=== PATIENT | female | born 1985 | race Caucasian/White ===

== ENCOUNTER 2018-05-09 15:59 | Emergency (ER) | payer BC ==
[~2018-05-09] VITALS: Ht 167.6 cm; Wt 63.5 kg
[2018-05-09] MEDS ORDERED: IV NORMAL SALINE 1000ML BAG 1,000 ML IV ONE (16:30)
[2018-05-09 16:40] LABS: BASO % 0 % (0-3); EOS # 0.1 x10^3/uL (0.0-0.7); EOS % 1 % (0-3); HEMATOCRIT 41.8 % (36.0-47.0); HEMOGLOBIN 14.8 g/dL (12.0-15.5); LYMPH # 0.5 x10^3/uL (1.0-4.8); LYMPH % 7 % (24-48); MEAN CORPUSCULAR HEMOGLOBIN 30 pg (25-35); MEAN CORPUSCULAR HGB CONC 36 g/dL (31-37); MEAN CORPUSCULAR VOLUME 83 fL (79-100); MONO # 0.3 x10^3/uL (0.0-1.1); MONO % 4 % (0-9); NEUT # 6.8 x10^3uL (1.8-7.7); NEUT % 88 % (31-73); PLATELET COUNT 230 x10^3/uL (140-400); RED BLOOD COUNT 5.01 x10^6/uL (3.50-5.40); RED CELL DISTRIBUTION WIDTH 13.2 % (11.5-14.5); WHITE BLOOD COUNT 7.7 x10^3/uL (4.0-11.0)
[2018-05-09 16:41] LABS: BILIRUBIN,URINE NEGATIVE (NEG); CLARITY,URINE CLEAR; COLOR,URINE YELLOW; NITRITE,URINE NEGATIVE (NEG); PH,URINE 8.5; PROTEIN,URINE NEGATIVE (NEG-TRACE); UROBILINOGEN,URINE 0.2 mg/dL (0.2 mg/dL)
[2018-05-09] MEDS ORDERED: CONTRAST GIVEN. MC PRN (16:45)
[2018-05-09] MEDS ORDERED: ONDANSETRON PF 4 MG/2 ML VIAL. IV ONE ×2 (16:45→19:30)
[2018-05-09] MEDS ORDERED: IOHEXOL 300 MG/ML 100ML VIAL. IV ONE (16:45)
[2018-05-09] MEDS ORDERED: MORPHINE SULFATE 4 MG/ML VIAL. IV ONE (16:45)
[2018-05-09 16:53] LABS: BACTERIA,URINE 0 /HPF (0-FEW); RBC,URINE OCC /HPF (0-2); SQUAMOUS EPITHELIAL CELL,UR OCC /LPF
[2018-05-09 16:59] LABS: CALCIUM 9.2 mg/dL (8.5-10.1); CREATININE 0.7 mg/dL (0.6-1.0); GFR 97.6; POTASSIUM 3.4 mmol/L (3.5-5.1)
[2018-05-09 17:04] LABS: ALBUMIN 3.9 g/dL (3.4-5.0); TOTAL BILIRUBIN 0.9 mg/dL (0.2-1.0); TOTAL PROTEIN 7.9 g/dL (6.4-8.2)
[2018-05-09] MEDS ORDERED: IV NORMAL SALINE 500ML BAG 500 ML IV ONE ×2 (17:45→18:00)
--- NOTE | 2018-05-09 17:52 | RAD ---
PQRS Compliance statement: One or more of the following individualized dose reduction techniques were utilized for this examination: 1. Automated exposure control. 2. Adjustment of the mA and/or kV according to patient size. 3. Use of iterative reconstruction technique. Indication:right lower quadrant pain, nausea and vomiting
Omni 300 75ml, no priors TECHNIQUE: CT abdomen and pelvis with IV contrast with multiplanar reformats. COMPARISON: None FINDINGS: Heart is normal in size. No pericardial or pleural effusion. Clear lung bases. Liver, spleen, gallbladder, pancreas, adrenals and kidneys are within normal limits. No free pelvic fluid or ascites. No enlarged retroperitoneal or pelvic adenopathy. No bowel obstruction. Normal appendix. No pneumoperitoneum or pneumatosis intestinalis. Retroverted uterus. Urinary bladder demonstrates no radiopaque stones. No suspicious bony lesion. IMPRESSION: 1. No nephrolithiasis or hydronephrosis. 2. Normal appendix. No bowel obstruction. Electronically signed by: Sotero Sánchez DO (05/09/2018 5:49 PM) [id number]
[2018-05-09 18:41] LABS: % LYMPHS 5 % (24-48); % MONOS 1 % (0-10); % SEGS 94 % (35-66); OVALOCYTES OCC; PLT ESTIMATE ADEQUATE (ADEQUATE); POLYCHROMASIA SLIGHT
[2018-05-09] MEDS ORDERED: ONDA4TAB12 PO (18:56)
--- NOTE | 2018-05-09 18:56 | PHYS DOC ---
Past Medical History Past Medical History: No Pertinent History Past Surgical History: Other Additional Past Surgical Histo: LEEP procedure Alcohol Use: Occasionally Drug Use: None Adult General Chief Complaint Chief Complaint: ABDOMINAL PAIN HPI HPI Patient is a 32 year old female who presents to the emergency room with complaints of nausea, vomiting, and right lower quadrant abdominal pain that began today. Patient states she has been unable to keep anything down and she has vomited at least 7 times today. She denies any diarrhea, dysuria, urinary frequency, hematuria, fever, cough, shortness of breath, or wheezing. Patient states that the pain radiates from her right lower quadrant across her lower abdomen into her left flank. She states that the only time she had pain similar to this was in the past when she had a ruptured ovarian cyst. Any vaginal bleeding, regular vaginal discharge, or vaginal itching. She reports her pain is a 10 out of 10 on the pain scale, and she has not taken anything for relief of her discomfort prior to arrival. Review of Systems Review of Systems Constitutional: Denies fever or chills [] HENT: Denies nasal congestion or sore throat [] Respiratory: Denies cough or shortness of breath [] Cardiovascular: No additional information not addressed in HPI [] GI: See HPI : Denies dysuria or hematuria, see HPI [] Musculoskeletal: Denies joint pain, reports L low back/flank pain Integument: Denies rash or skin lesions [] Neurologic: Denies headache, focal weakness or sensory changes [] Complete systems were reviewed and found to be within normal limits, except as documented in this note. Current Medications Current Medications Current Medications Medications (Trade) Dose Ordered Sig/Adiel Start Time Stop Time Status Last Admin Dose Admin Info (CONTRAST GIVEN -- Rx MONITORING) 1 each PRN DAILY PRN 05/09/18 16:45 05/09/18 20:08 DC Iohexol (Omnipaque 300 Mg/ml) 75 ml 1X ONCE 05/09/18 16:45 05/09/18 16:46 DC 05/09/18 17:08 75 ML Morphine Sulfate (Morphine Sulfate) 4 mg 1X ONCE 05/09/18 16:45 05/09/18 16:46 DC 05/09/18 16:40 4 MG Ondansetron HCl (Zofran) 4 mg 1X ONCE 05/09/18 19:30 1/4/19 19:31 DC 05/09/18 20:01 4 MG Potassium Chloride (Klor-Con) 20 meq 1X ONCE 05/09/18 19:00 05/09/18 19:01 DC 05/09/18 19:16 20 MEQ Sodium Chloride 500 ml @ 500 mls/hr 1X ONCE 05/09/18 18:00 05/09/18 18:34 DC Allergies Allergies Allergies Coded Allergies Type Severity Reaction Last Updated Verified Sulfa (Sulfonamide Antibiotics) Allergy Intermediate 05/09/18 Yes Physical Exam Physical Exam Constitutional: Well developed, well nourished, no acute distress, ill appearance. [] HENT: Normocephalic, atraumatic, bilateral external ears normal, oropharynx moist, no oral exudates, nose normal. [] Eyes: PERRLA, conjunctiva normal, no discharge. [] Neck: Normal range of motion, no tenderness, supple, no stridor. [] Cardiovascular:Heart rate regular rhythm, no murmur [] Lungs & Thorax: Bilateral breath sounds clear to auscultation [] Abdomen: Bowel sounds normal, soft, RLQ tenderness, no masses, no pulsatile masses; mcBurney's point tenderness, positive psoas sign, negative obturator sign [] Skin: Warm, dry, no erythema, no rash. [] Back: No CVA tenderness. [] Extremities: No cyanosis, no edema. [] Neurologic: Alert and oriented X 3, normal motor function, normal sensory function, no focal deficits noted. [] Psychologic: Affect normal, judgement normal, mood normal. [] Current Patient Data Vital Signs Vital Signs Date Time Temp Pulse Resp B/P (MAP) Pulse Ox O2 Delivery O2 Flow Rate FiO2 05/09/18 19:41 112 20 101/58 (72) 100 05/09/18 18:41 Room Air 05/09/18 16:10 98.4 98.4 Lab Values Laboratory Tests Test 05/09/18 16:25 05/09/18 16:31 White Blood Count 7.7 x10^3/uL (4.0-11.0) Red Blood Count 5.01 x10^6/uL (3.50-5.40) Hemoglobin 14.8 g/dL (12.0-15.5) Hematocrit 41.8 % (36.0-47.0) Mean Corpuscular Volume 83 fL (79-100) Mean Corpuscular Hemoglobin 30 pg (25-35) Mean Corpuscular Hemoglobin Concent 36 g/dL (31-37) Red Cell Distribution Width 13.2 % (11.5-14.5) Platelet Count 230 x10^3/uL (140-400) Neutrophils (%) (Auto) 88 % (31-73) H Lymphocytes (%) (Auto) 7 % (24-48) L Monocytes (%) (Auto) 4 % (0-9) Eosinophils (%) (Auto) 1 % (0-3) Basophils (%) (Auto) 0 % (0-3) Neutrophils # (Auto) 6.8 x10^3uL (1.8-7.7) Lymphocytes # (Auto) 0.5 x10^3/uL (1.0-4.8) L Monocytes # (Auto) 0.3 x10^3/uL (0.0-1.1) Eosinophils # (Auto) 0.1 x10^3/uL (0.0-0.7) Basophils # (Auto) 0.0 x10^3/uL (0.0-0.2) Segmented Neutrophils % 94 % (35-66) H Lymphocytes % 5 % (24-48) L Monocytes % 1 % (0-10) Platelet Estimate Adequate (ADEQUATE) Polychromasia Slight Ovalocytes Occ Urine Color Yellow Urine Clarity Clear Urine pH 8.5 Urine Specific [place] 1.025 Urine Protein Negative mg/dL (NEG-TRACE) Urine Glucose (UA) Negative mg/dL (NEG) Urine Ketones (Stick) Negative mg/dL (NEG) Urine Blood Negative (NEG) Urine Nitrite Negative (NEG) Urine Bilirubin Negative (NEG) Urine Urobilinogen Dipstick 0.2 mg/dL (0.2 mg/dL) Urine Leukocyte Esterase Negative (NEG) Urine RBC Occ /HPF (0-2) Urine WBC 1-4 /HPF (0-4) Urine Squamous Epithelial Cells Occ /LPF Urine Bacteria 0 /HPF (0-FEW) Urine Mucus Mod /LPF Sodium Level 141 mmol/L (136-145) Potassium Level 3.4 mmol/L (3.5-5.1) L Chloride Level 104 mmol/L (98-107) Carbon Dioxide Level 26 mmol/L (21-32) Anion Gap 11 (6-14) Blood Urea Nitrogen 14 mg/dL (7-20) Creatinine 0.7 mg/dL (0.6-1.0) Estimated GFR (Cockcroft-Gault) 97.6 BUN/Creatinine Ratio 20 (6-20) Glucose Level 108 mg/dL (70-99) H Calcium Level 9.2 mg/dL (8.5-10.1) Total Bilirubin 0.9 mg/dL (0.2-1.0) Aspartate Amino Transferase (AST) 24 U/L (15-37) Alanine Aminotransferase (ALT) 39 U/L (14-59) Alkaline Phosphatase 82 U/L (46-116) Total Protein 7.9 g/dL (6.4-8.2) Albumin 3.9 g/dL (3.4-5.0) Albumin/Globulin Ratio 1.0 (1.0-1.7) POC Urine HCG, Qualitative Hcg negative (Negative) Laboratory Tests 05/09/18 16:25 Laboratory Tests 05/09/18 16:25 EKG EKG [] Radiology/Procedures Radiology/Procedures PROCEDURE: CT ABD PELV W/ IV CONTRST ONLY PQRS Compliance statement: One or more of the following individualized dose reduction techniques were utilized for this examination: 1. Automated exposure control. 2. Adjustment of the mA and/or kV according to patient size. 3. Use of iterative reconstruction technique. Indication:right lower quadrant pain, nausea and vomiting
Omni 300 75ml, no priors TECHNIQUE: CT abdomen and pelvis with IV contrast with multiplanar reformats. COMPARISON: None FINDINGS: Heart is normal in size. No pericardial or pleural effusion. Clear lung bases. Liver, spleen, gallbladder, pancreas, adrenals and kidneys are within normal limits. No free pelvic fluid or ascites. No enlarged retroperitoneal or pelvic adenopathy. No bowel obstruction. Normal appendix. No pneumoperitoneum or pneumatosis intestinalis. Retroverted uterus. Urinary bladder demonstrates no radiopaque stones. No suspicious bony lesion. IMPRESSION: 1. No nephrolithiasis or hydronephrosis. 2. Normal appendix. No bowel obstruction.[] Course & Med Decision Making Course & Med Decision Making Pertinent Labs and Imaging studies reviewed. (See chart for details) Dx: nausea, vomiting, abdominal pain DDx: appendicitis, diverticulitis, ovarian cyst, pyelonephritis, nephrolithiasis 1909 Orthostatics were negative after 1500 ml of NS, pt remains tachycardic and reported nausea increasing, additonal zofran and 500 NS bolus ordered. Pt reports feeling better. Discharged with rx for zofran, clear fluids x24 hours, return to ER if symptoms worsen Patient verbalized an understanding of home care, medications, follow-up, and return to ED instructions and was in agreement with the plan of care. [] Dragon Disclaimer Dragon Disclaimer This electronic medical record was generated, in whole or in part, using a voice recognition dictation system. Departure Departure Impression: Primary Impression: Nausea & vomiting Additional Impressions: Abdominal pain, right lower quadrant Hypokalemia Disposition: HOME, SELF-CARE Condition: STABLE Referrals: NO PCP (PCP) Patient Instructions: Viral Gastroenteritis, [id number] Additional Instructions: Fill prescriptions and use them as directed. Recommend clear fluids for the next 24 hours. Then you may advance to bland foods such as bananas, rice, applesauce, and dry toast. Follow-up with your primary care doctor in the next 1 -2 days. Return to the emergency room if your symptoms worsen. Scripts Ondansetron (ONDANSETRON ODT) 4 Mg Tab.rapdis 1 TAB PO PRN Q6-8HRS PRN for NAUSEA/VOMITING, #16 TAB 0 Refills Prov: LYNN RAMSEY AUXILIARY OPERATOR 05/09/18 Problem Qualifiers Primary Impression: Nausea & vomiting Vomiting type: unspecified Vomiting Intractability: non-intractable Qualified Codes: R11.2 - Nausea with vomiting, unspecified LYNN RAMSEY AUXILIARY OPERATOR May 09, 2018 18:56
[2018-05-09] MEDS ORDERED: POTASSIUM CHLORIDE 20 MEQ TABLET.ER. PO ONE (19:00)
[2018-05-09 19:41] VITALS: BP 101/58
== END 2018-05-09 20:07 | disposition home or self-care (01) ==
LOC: ER 15:59
DX: R10.31 Right lower quadrant pain (principal); R11.2 Nausea with vomiting, unspecified; E87.6 Hypokalemia; M54.5 Low back pain; Z88.2 Allergy status to sulfonamides
CPT/HCPCS: 36415; 74177; 80053; 81001; 81025; 85007; 85025; 96361; 96374; 96375; 96376; 99284; J2270; J2405; J7030; J7040; Q9967

== ENCOUNTER 2018-08-09 15:14 | Inpatient (IN) | payer BC ==
[~2018-08-09] VITALS: Ht 170.2 cm; Wt 56.5 kg
[~2018-08-09 15:14] MED LIST: ONDA4TAB12 PO
--- NOTE | 2018-08-09 15:58 | PHYS DOC ---
Past Medical History Past Medical History: No Pertinent History (LEE ANN HARTLEY APRN) Past Surgical History: Other Additional Past Surgical Histo: LEEP procedure (LEE ANN HARTLEY APRN) Alcohol Use: Occasionally Drug Use: None (LEE ANN HARTLEY APRN) Adult General Chief Complaint Chief Complaint: FLANK PAIN HPI HPI Patient is a 33 year old female with no significant medical history who presents to the ED today complaining of right flank pain. Patient states she was seen earlier today at [facility] urgent [facility], she states she was diagnosed with UTI and sent home with Macrobid. She states she developed increased pain to her right flank region this afternoon. She states she started vomiting after taking the Macrobid. Patient states her flank pain wraps around the abdomen. Denies any fever. (LEE ANN HARTLEY APRN) Review of Systems Review of Systems Constitutional: Denies fever or chills [] Eyes: Denies change in visual acuity, redness, or eye pain [] HENT: Denies nasal congestion or sore throat [] Respiratory: Denies cough or shortness of breath [] Cardiovascular: No additional information not addressed in HPI [] GI: Reports nausea and vomiting,abdominal pain, denies bloody stools or diarrhea [] : Reports right flank pain, currently on UTI treatment. Denies dysuria or hematuria [] Musculoskeletal: Denies back pain or joint pain [] Integument: Denies rash or skin lesions [] Neurologic: Denies headache, focal weakness or sensory changes [] All other systems were reviewed and found to be within normal limits, except as documented in this note. (LEE ANN HARTLEY APRN) Current Medications Current Medications Current Medications Medications (Trade) Dose Ordered Sig/Adiel Start Time Stop Time Status Last Admin Dose Admin Ceftriaxone Sodium (Rocephin) 1 gm 1X ONCE 08/09/18 17:00 08/09/18 17:01 DC 08/09/18 17:41 1 GM Metoclopramide HCl (Reglan Vial) 10 mg 1X ONCE 08/09/18 18:45 08/09/18 18:46 DC Morphine Sulfate (Morphine Sulfate) 4 mg 1X ONCE 08/09/18 18:15 08/09/18 18:16 DC 08/09/18 18:41 2 MG Ondansetron HCl (Zofran) 4 mg 1X ONCE 08/09/18 16:15 08/09/18 16:16 DC 08/09/18 16:04 4 MG Potassium Chloride/Sodium Chloride 1,000 ml @ 75 mls/hr 1X ONCE 08/09/18 18:45 08/10/18 08:04 DC 08/09/18 18:59 75 MLS/HR Potassium Chloride (Klor-Con) 40 meq 1X ONCE 08/09/18 17:00 08/09/18 17:01 Cancel Prochlorperazine Edisylate (Compazine) 10 mg STK-MED ONCE 08/09/18 17:33 08/09/18 17:34 DC Sodium Chloride 1,000 ml @ 1,000 mls/hr 1X ONCE 08/09/18 16:00 08/09/18 16:59 DC 08/09/18 16:03 1,000 MLS/HR (ERROL CONLEY DO) Allergies Allergies Allergies Coded Allergies Type Severity Reaction Last Updated Verified Sulfa (Sulfonamide Antibiotics) Allergy Intermediate 05/09/18 Yes (ERROL CONLEY DO) Physical Exam Physical Exam Constitutional: Well developed, well nourished, no acute distress, non-toxic appearance. [] HENT: Normocephalic, atraumatic, bilateral external ears normal, oropharynx moist, no oral exudates, nose normal. [] Eyes: PERRLA, EOMI, conjunctiva normal, no discharge. [] Neck: Normal range of motion, no tenderness, supple, no stridor. [] Cardiovascular:Heart rate regular rhythm, no murmur [] Lungs & Thorax: Bilateral breath sounds clear to auscultation [] Abdomen: Bowel sounds normal, soft, no right upper quadrant or right lower quadrant tenderness, negative psoas sign, negative obturator sign, no masses, no pulsatile masses. [] Skin: Warm, dry, no erythema, no rash. [] Back: No tenderness, no CVA tenderness. [] Extremities: No tenderness, no cyanosis, no clubbing, ROM intact, no edema. [] Neurologic: Alert and oriented X 3, normal motor function, normal sensory function, no focal deficits noted. [] Psychologic: Affect normal, judgement normal, mood normal. [] (LEE ANN HARTLEY APRN) Current Patient Data Vital Signs Vital Signs Date Time Temp Pulse Resp B/P (MAP) Pulse Ox O2 Delivery O2 Flow Rate FiO2 08/09/18 18:54 115 16 101/60 (74) 100 08/09/18 18:41 Room Air 08/09/18 15:14 98.1 98.1 (ERROL CONLEY DO) Lab Values Laboratory Tests Test 08/09/18 15:38 08/09/18 15:52 08/09/18 16:00 Urine Collection Type Void Urine Color [place] Urine Clarity Clear Urine pH 8.5 Urine Specific [place] 1.015 Urine Protein Negative mg/dL (NEG-TRACE) Urine Glucose (UA) Negative mg/dL (NEG) Urine Ketones (Stick) Trace mg/dL (NEG) Urine Blood Negative (NEG) Urine Nitrite Positive (NEG) Urine Bilirubin Negative (NEG) Urine Urobilinogen Dipstick 1.0 mg/dL (0.2 mg/dL) Urine Leukocyte Esterase Moderate (NEG) Urine RBC 0 /HPF (0-2) Urine WBC 11-20 /HPF (0-4) Urine Squamous Epithelial Cells Few /LPF Urine Bacteria Few /HPF (0-FEW) Urine Mucus Mod /LPF Urine Opiates Screen Neg (NEG) Urine Methadone Screen Neg (NEG) Urine Barbiturates Neg (NEG) Urine Phencyclidine Screen Neg (NEG) Urine Amphetamine/Methamphetamine Neg (NEG) Urine Benzodiazepines Screen Neg (NEG) Urine Cocaine Screen Neg (NEG) Urine Cannabinoids Screen Neg (NEG) Urine Ethyl Alcohol Neg (NEG) POC Urine HCG, Qualitative Hcg positive (Negative) White Blood Count 13.5 x10^3/uL (4.0-11.0) H Red Blood Count 5.14 x10^6/uL (3.50-5.40) Hemoglobin 14.8 g/dL (12.0-15.5) Hematocrit 43.5 % (36.0-47.0) Mean Corpuscular Volume 85 fL (79-100) Mean Corpuscular Hemoglobin 29 pg (25-35) Mean Corpuscular Hemoglobin Concent 34 g/dL (31-37) Red Cell Distribution Width 13.1 % (11.5-14.5) Platelet Count 258 x10^3/uL (140-400) Neutrophils (%) (Auto) 91 % (31-73) H Lymphocytes (%) (Auto) 5 % (24-48) L Monocytes (%) (Auto) 3 % (0-9) Eosinophils (%) (Auto) 1 % (0-3) Basophils (%) (Auto) 0 % (0-3) Neutrophils # (Auto) 12.3 x10^3uL (1.8-7.7) H Lymphocytes # (Auto) 0.6 x10^3/uL (1.0-4.8) L Monocytes # (Auto) 0.4 x10^3/uL (0.0-1.1) Eosinophils # (Auto) 0.1 x10^3/uL (0.0-0.7) Basophils # (Auto) 0.0 x10^3/uL (0.0-0.2) Segmented Neutrophils % 84 % (35-66) H Band Neutrophils % 11 % (0-9) H Lymphocytes % 3 % (24-48) L Monocytes % 2 % (0-10) Platelet Estimate Adequate (ADEQUATE) Maternal Serum HCG Beta Subunit 10 mIU/mL (0-5) H Sodium Level 144 mmol/L (136-145) Potassium Level 3.1 mmol/L (3.5-5.1) L Chloride Level 105 mmol/L (98-107) Carbon Dioxide Level 27 mmol/L (21-32) Anion Gap 12 (6-14) Blood Urea Nitrogen 9 mg/dL (7-20) Creatinine 0.8 mg/dL (0.6-1.0) Estimated GFR (Cockcroft-Gault) 83.1 BUN/Creatinine Ratio 11 (6-20) Glucose Level 102 mg/dL (70-99) H Calcium Level 9.2 mg/dL (8.5-10.1) Total Bilirubin 0.6 mg/dL (0.2-1.0) Aspartate Amino Transferase (AST) 15 U/L (15-37) Alanine Aminotransferase (ALT) 19 U/L (14-59) Alkaline Phosphatase 65 U/L (46-116) Total Protein 7.9 g/dL (6.4-8.2) Albumin 4.4 g/dL (3.4-5.0) Albumin/Globulin Ratio 1.3 (1.0-1.7) Lipase 141 U/L (73-393) Ethyl Alcohol Level < 10 mg/dL (0-10) Laboratory Tests 08/09/18 16:00 Laboratory Tests 08/09/18 16:00 Microbiology 08/09/18 Urine Culture - Final, Complete 08/09/18 Urine Culture Result 1 (RAMESH) - Final, Complete (ERROL CONLEY DO) Lab Values Laboratory Tests Test 08/09/18 15:38 08/09/18 15:52 08/09/18 16:00 Urine Collection Type Void Urine Color [place] Urine Clarity Clear Urine pH 8.5 Urine Specific [place] 1.015 Urine Protein Negative mg/dL (NEG-TRACE) Urine Glucose (UA) Negative mg/dL (NEG) Urine Ketones (Stick) Trace mg/dL (NEG) Urine Blood Negative (NEG) Urine Nitrite Positive (NEG) Urine Bilirubin Negative (NEG) Urine Urobilinogen Dipstick 1.0 mg/dL (0.2 mg/dL) Urine Leukocyte Esterase Moderate (NEG) Urine RBC 0 /HPF (0-2) Urine WBC 11-20 /HPF (0-4) Urine Squamous Epithelial Cells Few /LPF Urine Bacteria Few /HPF (0-FEW) Urine Mucus Mod /LPF Urine Opiates Screen Neg (NEG) Urine Methadone Screen Neg (NEG) Urine Barbiturates Neg (NEG) Urine Phencyclidine Screen Neg (NEG) Urine Amphetamine/Methamphetamine Neg (NEG) Urine Benzodiazepines Screen Neg (NEG) Urine Cocaine Screen Neg (NEG) Urine Cannabinoids Screen Neg (NEG) Urine Ethyl Alcohol Neg (NEG) POC Urine HCG, Qualitative Hcg positive (Negative) White Blood Count 13.5 x10^3/uL (4.0-11.0) H Red Blood Count 5.14 x10^6/uL (3.50-5.40) Hemoglobin 14.8 g/dL (12.0-15.5) Hematocrit 43.5 % (36.0-47.0) Mean Corpuscular Volume 85 fL (79-100) Mean Corpuscular Hemoglobin 29 pg (25-35) Mean Corpuscular Hemoglobin Concent 34 g/dL (31-37) Red Cell Distribution Width 13.1 % (11.5-14.5) Platelet Count 258 x10^3/uL (140-400) Neutrophils (%) (Auto) 91 % (31-73) H Lymphocytes (%) (Auto) 5 % (24-48) L Monocytes (%) (Auto) 3 % (0-9) Eosinophils (%) (Auto) 1 % (0-3) Basophils (%) (Auto) 0 % (0-3) Neutrophils # (Auto) 12.3 x10^3uL (1.8-7.7) H Lymphocytes # (Auto) 0.6 x10^3/uL (1.0-4.8) L Monocytes # (Auto) 0.4 x10^3/uL (0.0-1.1) Eosinophils # (Auto) 0.1 x10^3/uL (0.0-0.7) Basophils # (Auto) 0.0 x10^3/uL (0.0-0.2) Segmented Neutrophils % 84 % (35-66) H Band Neutrophils % 11 % (0-9) H Lymphocytes % 3 % (24-48) L Monocytes % 2 % (0-10) Platelet Estimate Adequate (ADEQUATE) Maternal Serum HCG Beta Subunit 10 mIU/mL (0-5) H Sodium Level 144 mmol/L (136-145) Potassium Level 3.1 mmol/L (3.5-5.1) L Chloride Level 105 mmol/L (98-107) Carbon Dioxide Level 27 mmol/L (21-32) Anion Gap 12 (6-14) Blood Urea Nitrogen 9 mg/dL (7-20) Creatinine 0.8 mg/dL (0.6-1.0) Estimated GFR (Cockcroft-Gault) 83.1 BUN/Creatinine Ratio 11 (6-20) Glucose Level 102 mg/dL (70-99) H Calcium Level 9.2 mg/dL (8.5-10.1) Total Bilirubin 0.6 mg/dL (0.2-1.0) Aspartate Amino Transferase (AST) 15 U/L (15-37) Alanine Aminotransferase (ALT) 19 U/L (14-59) Alkaline Phosphatase 65 U/L (46-116) Total Protein 7.9 g/dL (6.4-8.2) Albumin 4.4 g/dL (3.4-5.0) Albumin/Globulin Ratio 1.3 (1.0-1.7) Lipase 141 U/L (73-393) Ethyl Alcohol Level < 10 mg/dL (0-10) Laboratory Tests 08/09/18 16:00 Laboratory Tests 08/09/18 16:00 (LEE ANN HARTLEY RECORD KEEPER) EKG EKG [] (LEE ANN HARTLEY APRN) Radiology/Procedures Radiology/Procedures [] (LEE ANN HARTLEY APRN) Radiology/Procedures PROCEDURE: OB <14 WKS W/TV History: Nausea, vomiting, abdominal pain, patient has a beta-hCG level of 10, although she takes hCG shots for weight loss. Transabdominal and transvaginal ultrasound imaging of the pelvis was performed. Comparison: None. LMP: 07/26/2018 G 3 P 2 Findings: The uterus is retroverted in position and otherwise normal in appearance. The uterus measures 8.2 x 5.5 x 3.9 cm. No pole or gestational sac identified. The endometrium measures 0.7 cm in thickness. Small nabothian cysts seen. The right ovary measures 2.1 x 2.4 x 1.3 cm. The left ovary measures 3.9 x 3.4 x 1.9 cm. The ovaries are normal in appearance, with follicles seen bilaterally. No adnexal mass or free fluid identified. Impression: 1. No pole or gestational sac identified. It is possible that this is due to early gestational age, although patient's beta-hCG elevation may be due to aforementioned hCG injections. Recommend serial beta-hCG levels and follow-up sonography as indicated. 2. Multiple small bilateral ovarian cysts. Normal bilateral ovarian vascular flow. Electronically signed by: Bear Ramos MD (08/09/2018 8:51 PM) [facility] (ERROL CONLEY DO) Course & Med Decision Making Course & Med Decision Making Pertinent Labs and Imaging studies reviewed. (See chart for details) This is a 33-year-old female patient presenting to the ED today with complaints of right flank pain, nausea vomiting, patient was seen earlier at an urgent care , was diagnosed with UTI and started on Macrobid. She took a dose of the medication and started vomiting. She is also in experiencing increased pain to the right flank region this afternoon. Urine test is positive, patient states she doesn't believe the results because she takes hCG injections but she does not uses natural methods of control. We did a beta hCG which is 10. CBC with a WBC of 13.5 and a left shift, CMP with no acute findings, urine analysis noted for nitrites and leukocytes. Beta hCG of 10 is too early to show if there is an IUP patient also states her last cycle was last week she believes this elevated beta hcg is from hcg shots though she does not use any reliable control method. Potassium 3.1 Patient will be discharged with cephalexin, zofran and Compazine for nausea and vomiting. Offered her choice to stay. She states she does not necessarily want to stay. 1820 patient is vomiting right now. Spoke to patient. Informed her there is no way she can go home in this condition. She agreed to stay. I consulted with Dr. Armstrong concerning patient's elevated beta hCG, he states patient is not , this is likely from hCG shots. Patient will be admitted under Dr. Díaz. We will order a repeat beta hCG for AM. Still waiting for OB ultrasound. Admitted with normal saline with potassium. Patient unable to tolerate potassium by mouth (LEE ANN HARTLEY APRN) Dragon Disclaimer Dragon Disclaimer This electronic medical record was generated, in whole or in part, using a voice recognition dictation system. (LEE ANN HARTLEY APRN) Departure Departure Impression: Primary Impression: Hypokalemia Additional Impressions: Pyelonephritis Elevated serum hCG Disposition: ADMITTED INPATIENT Condition: STABLE Referrals: NO PCP (PCP) Scripts Ciprofloxacin Hcl (CIPRO) 500 Mg Tablet 1 TAB PO BID for uti, #20 TAB Prov: JAC ELIAS MD 08/11/18 Attending Signature Attending Signature I have reviewed the PA/LOSS PREVENTION AUDITOR's note and plan of care. I was available for consultation as needed during the patient's visit in the emergency department. I agree with the clinical impression, plan, and disposition. (ERROL CONLEY DO) Problem Qualifiers LEE ANN HARTLEY APRN Aug 09, 2018 15:58 ERROL CONLEY DO Aug 15, 2018 00:39
[2018-08-09 16:00] LABS: BILIRUBIN,URINE NEGATIVE (NEG); CLARITY,URINE CLEAR; COLOR,URINE ORANGE; NITRITE,URINE POSITIVE (NEG); PH,URINE 8.5; PROTEIN,URINE NEGATIVE (NEG-TRACE)
[2018-08-09] MEDS ORDERED: IV NORMAL SALINE 1000ML BAG 1,000 ML IV ONE (16:00)
[2018-08-09 16:12] LABS: BARBITURATES NEG (NEG); BENZODIAZEPINES NEG (NEG); CANNABINOIDS NEG (NEG); COCAINE NEG (NEG); METHADONE NEG (NEG); OPIATES NEG (NEG); PHENCYCLIDINE NEG (NEG)
[2018-08-09 16:13] LABS: AMPHETAMINE/METHAMPHETAMINE NEG (NEG)
[2018-08-09 16:14] LABS: BACTERIA,URINE FEW /HPF (0-FEW); RBC,URINE 0 /HPF (0-2); SQUAMOUS EPITHELIAL CELL,UR FEW /LPF
[2018-08-09] MEDS ORDERED: ONDANSETRON PF 4 MG/2 ML VIAL. IV ONE (16:15)
[2018-08-09 16:19] LABS: BASO % 0 % (0-3); EOS # 0.1 x10^3/uL (0.0-0.7); EOS % 1 % (0-3); HEMATOCRIT 43.5 % (36.0-47.0); HEMOGLOBIN 14.8 g/dL (12.0-15.5); LYMPH # 0.6 x10^3/uL (1.0-4.8); LYMPH % 5 % (24-48); MEAN CORPUSCULAR HEMOGLOBIN 29 pg (25-35); MEAN CORPUSCULAR HGB CONC 34 g/dL (31-37); MEAN CORPUSCULAR VOLUME 85 fL (79-100); MONO # 0.4 x10^3/uL (0.0-1.1); MONO % 3 % (0-9); NEUT # 12.3 x10^3uL (1.8-7.7); NEUT % 91 % (31-73); PLATELET COUNT 258 x10^3/uL (140-400); RED BLOOD COUNT 5.14 x10^6/uL (3.50-5.40); RED CELL DISTRIBUTION WIDTH 13.1 % (11.5-14.5); WHITE BLOOD COUNT 13.5 x10^3/uL (4.0-11.0)
[2018-08-09 16:32] LABS: CALCIUM 9.2 mg/dL (8.5-10.1); CREATININE 0.8 mg/dL (0.6-1.0); GFR 83.1; POTASSIUM 3.1 mmol/L (3.5-5.1)
[2018-08-09 16:37] LABS: ALBUMIN 4.4 g/dL (3.4-5.0); ALBUMIN/GLOBULIN RATIO 1.3 (1.0-1.7); TOTAL BILIRUBIN 0.6 mg/dL (0.2-1.0); TOTAL PROTEIN 7.9 g/dL (6.4-8.2)
[2018-08-09 16:39] LABS: % BANDS 11 % (0-9); % LYMPHS 3 % (24-48); % MONOS 2 % (0-10); % SEGS 84 % (35-66); PLT ESTIMATE ADEQUATE (ADEQUATE)
[2018-08-09] MEDS ORDERED: cefTRIAXone IV Push 1 GM VIAL. IVP ONE (17:00)
[2018-08-09] MEDS ORDERED: POTASSIUM CHLORIDE 20 MEQ TABLET.ER. PO ONE (17:00)
[2018-08-09] MEDS ORDERED: PROCHLORPERAZINE 10 MG/2 ML VIAL. ONE (17:33)
[2018-08-09] MEDS ORDERED: PROCHLORPERAZINE 10 MG/2 ML VIAL. IV ONE (17:45)
[2018-08-09] MEDS ORDERED: MORPHINE SULFATE 4 MG/ML VIAL. IV ONE (18:15)
[2018-08-09] MEDS ORDERED: METOCLOPRAMIDE HCL 10 MG/2 ML VIAL. IV ONE (18:45)
[2018-08-09] MEDS ORDERED: PROCHLORPERAZINE 10 MG/2 ML VIAL. IV PRN (19:00)
[2018-08-09] MEDS ORDERED: ONDANSETRON PF 4 MG/2 ML VIAL. IV PRN (19:00)
[2018-08-09] MEDS ORDERED: MORPHINE SULFATE 2 MG/ML VIAL. IV PRN (19:00)
[2018-08-09] MEDS ORDERED: fentaNYL PF VIAL 100 MCG/2 ML VIAL IV ONE (19:45)
--- NOTE | 2018-08-09 20:54 | RAD ---
History: Nausea, vomiting, abdominal pain, patient has a beta-hCG level of 10, although she takes hCG shots for weight loss. Transabdominal and transvaginal ultrasound imaging of the pelvis was performed. Comparison: None. LMP: 07/26/2018 G 3 P 2 Findings: The uterus is retroverted in position and otherwise normal in appearance. The uterus measures 8.2 x 5.5 x 3.9 cm. No pole or gestational sac identified. The endometrium measures 0.7 cm in thickness. Small nabothian cysts seen. The right ovary measures 2.1 x 2.4 x 1.3 cm. The left ovary measures 3.9 x 3.4 x 1.9 cm. The ovaries are normal in appearance, with follicles seen bilaterally. No adnexal mass or free fluid identified. Impression: 1. No pole or gestational sac identified. It is possible that this is due to early gestational age, although patient's beta-hCG elevation may be due to aforementioned hCG injections. Recommend serial beta-hCG levels and follow-up sonography as indicated. 2. Multiple small bilateral ovarian cysts. Normal bilateral ovarian vascular flow. Electronically signed by: Bear Ramos MD (08/09/2018 8:51 PM) [facility]
[2018-08-09 21:00] VITALS: BP 111/71
[2018-08-09] MEDS ORDERED: DEXT10TA23 PO (21:21)
[2018-08-09 23:29] VITALS: BP 97/45
[2018-08-09] MEDS: ACETAMINOPHEN 325 MG TABLET. PO PRN (23:30)
[2018-08-10] VITALS (7 sets, daily range): BP systolic 86–108; BP diastolic 48–71
--- NOTE | 2018-08-10 00:32 | NUR ---
Pt arrived to the unit at approximately 2029 via gurney from the ED. Pt's mother at bedside. Patient information guide packet was explained and given to pt. At this time, pt is really drowsy from all the medications given down in the ED. Pt unable to answer questions regarding her medical history, home medications, and pharmacy. Pt triggered a positive sepsis. Stat lactic, Blood culture x2, and EKG ordered. Dr. Arjun garcia, awaiting call, and RN spoke to ICU charge operator. Awaiting lab result to come back. Pt made comfortable in bed. Will continue to monitor. Addendum: 08/10/18 at 0433 by CHERYL TORRES RN Lactic came back at 1.6, temperature and heart rate came down. Dr. Díaz had received message through "[employer]" but no phone call back at this time. Pt resting comfortably in bed. Will continue to monitor pt closely.
[2018-08-10 05:03] LABS: BASO % 0 % (0-3); EOS % 1 % (0-3); HEMOGLOBIN 13.2 g/dL (12.0-15.5); LYMPH # 0.6 x10^3/uL (1.0-4.8); LYMPH % 11 % (24-48); MEAN CORPUSCULAR HEMOGLOBIN 29 pg (25-35); MEAN CORPUSCULAR HGB CONC 34 g/dL (31-37); MEAN CORPUSCULAR VOLUME 85 fL (79-100); MONO # 0.2 x10^3/uL (0.0-1.1); MONO % 3 % (0-9); NEUT # 5.2 x10^3uL (1.8-7.7); NEUT % 86 % (31-73); PLATELET COUNT 186 x10^3/uL (140-400); RED BLOOD COUNT 4.58 x10^6/uL (3.50-5.40); RED CELL DISTRIBUTION WIDTH 12.7 % (11.5-14.5); WHITE BLOOD COUNT 6.1 x10^3/uL (4.0-11.0)
[2018-08-10 05:31] LABS: CALCIUM 7.9 mg/dL (8.5-10.1); CREATININE 0.7 mg/dL (0.6-1.0); POTASSIUM 3.3 mmol/L (3.5-5.1)
--- NOTE | 2018-08-10 07:38 | PDOC1 ---
History and Physical Date of Admission Date of Admission DATE: 08/10/18 TIME: 07:37 Identification/Chief Complaint Chief Complaint Flank pain Source Source: Patient History of Present Illness History of Present Illness 33 year old female with no significant medical history who presents to the ED today complaining of right flank pain. Patient states she was seen earlier today at [place] urgent [facility], she states she was diagnosed with UTI and sent home with Macrobid. She states she developed increased pain to her right flank region this afternoon. She states she started vomiting after taking the Macrobid. Patient states her flank pain wraps around the abdomen. Fever 102.3F. Urine test is positive, patient states she doesn't believe the results because she takes hCG injections but she does not uses natural methods of control. Beta hCG which is 10 on blood work. CBC with a WBC of 13.5 and a left shift, CMP with no acute findings, urine analysis noted for nitrites and leukocytes. Patient also states her last menstrual cycle was last week she believes this elevated beta hcg is from hcg shots though she does not use any reliable control method. Past Medical History Cardiovascular: No pertinent hx Pulmonary: No pertinent hx GI: No pertinent hx Heme/Onc: No pertinent hx Hepatobiliary: No pertinent hx Psych: No pertinent hx Rheumatologic: No pertinent hx Infectious disease: No pertinent hx ENT: No pertinent hx Renal/: No pertinent hx Endocrine: No pertinent hx Dermatology: No pertinent hx Past Surgical History Past Surgical History: Other (LEEP, colposcopy) Family History Family History: Hypertension Social History Smoke: No ALCOHOL: none Drugs: None Current Problem List Problem List Problems Medical Problems: (1) Elevated serum hCG Status: Acute (2) Hypokalemia Status: Acute (3) Pyelonephritis Status: Acute Current Medications Current Medications Current Medications Sodium Chloride 1,000 ml @ 1,000 mls/hr 1X ONCE IV Last administered on at 16:03; Start 08/09/18 at 16:00; Stop 08/09/18 at 16:59; Status DC Ondansetron HCl (Zofran) 4 mg 1X ONCE IV Last administered on 08/09/18at 16:04; Start 08/09/18 at 16:15; Stop 08/09/18 at 16:16; Status DC Ceftriaxone Sodium (Rocephin) 1 gm 1X ONCE IVP Last administered on 08/09/18at 17:41; Start 08/09/18 at 17:00; Stop 08/09/18 at 17:01; Status DC Potassium Chloride (Klor-Con) 40 meq 1X ONCE PO ; Start 08/09/18 at 17:00; Stop 08/09/18 at 17:01; Status Cancel Prochlorperazine Edisylate (Compazine) 10 mg 1X ONCE IV Last administered on at 17:37; Start 08/09/18 at 17:45; Stop 08/09/18 at 17:46; Status DC Prochlorperazine Edisylate (Compazine) 10 mg STK-MED ONCE .ROUTE ; Start at 17:33; Stop 08/09/18 at 17:34; Status DC Morphine Sulfate (Morphine Sulfate) 4 mg 1X ONCE IV Last administered on at 18:41; Start 08/09/18 at 18:15; Stop 08/09/18 at 18:16; Status DC Metoclopramide HCl (Reglan Vial) 10 mg 1X ONCE IV ; Start 08/09/18 at 18:45; Stop 08/09/18 at 18:46; Status DC Potassium Chloride/Sodium Chloride 1,000 ml @ 75 mls/hr 1X ONCE IV Last administered on 08/09/18at 18:59; Start 08/09/18 at 18:45; Stop 08/10/18 at 08:04 Ondansetron HCl (Zofran) 4 mg PRN Q8HRS PRN IV NAUSEA/VOMITING; Start 08/09/18 at 19:00; Stop 08/10/18 at 18:59 Morphine Sulfate (Morphine Sulfate) 1 mg PRN Q2HR PRN IV PAIN; Start 08/09/18 at 19:00; Stop 08/10/18 at 18:59 Acetaminophen (Tylenol) 650 mg PRN Q4HRS PRN PO FEVER Last administered on at 23:30; Start 08/09/18 at 19:00; Stop 08/10/18 at 18:59 Prochlorperazine Edisylate (Compazine) 10 mg PRN TID PRN IV NAUSEA; Start at 19:00 Fentanyl Citrate (Fentanyl 2ml Vial) 50 mcg 1X ONCE IV Last administered on 08/09/18at 19:41; Start 08/09/18 at 19:45; Stop 08/09/18 at 19:46; Status DC Active Scripts Active Ondansetron Odt (Ondansetron) 4 Mg Tab.rapdis 1 Tab PO PRN Q6-8HRS PRN Reported Adderall 10 Mg Tablet (Dextroamphetamine/Amphetamine) 10 Mg Tablet 5 Mg PO BID Allergies Allergies: Coded Allergies: Sulfa (Sulfonamide Antibiotics) (Verified Allergy, Intermediate, 05/09/18) ROS General: YES: Chills, Fatigue, Malaise, Appetite; No: Night Sweats, Other PSYCHOLOGICAL ROS: YES: Anxiety; No: Behavioral Disorder, Concentration difficultie, Decreased libido, Depression, Disorientation, Hallucinations, Hostility, Irritablity, Memory difficulties, Mood Swings, Obsessive thoughts, Physical abuse, Sexual abuse, Sleep disturbances, Suicidal ideation, Other Eyes: No Blurry vision, No Decreased vision, No Double vision, No Dry eyes, No Excessive tearing, No Eye Pain, No Itchy Eyes, No Loss of vision, No Photophobia , No Scotomata, No Uses contacts, No Uses glasses, No Other HEENT: No: Heacaches, Visual Changes, Hearing change, Nasal congestion, Nasal discharge, Oral lesions, Sinus pain, Sore Throat, Epistaxis, Sneezing, Snoring, Tinnitus, Vertigo, Vocal changes, Other ALLERGY AND IMMUNOLOGY: No: Hives, Insect Bite Sensitivity, Itchy/Watery Eyes, Nasal Congestion, Post Nasal Drip, Seasonal Allergies, Other Hematological and Lymphatic: No: Bleeding Problems, Blood Clots, Blood Transfusions, Brusing, Night Sweats, Pallor, Swollen Lymph Nodes, Other ENDOCRINE: No: Breast Changes, Galactorrhea, Hair Pattern Changes, Hot Flashes , Malaise/lethargy, Mood Swings, Palpitations, Polydipsia/polyuria, Skin Changes , Temperature Intolerance, Unexpected Weight Changes, Other Breast: No New/Changing Breast Lumps, No Nipple changes, No Nipple discharge, No Other Respiratory: No: Cough, Hemoptysis, Orthopnea, Pleuritic Pain, Shortness of breath, SOB with excertion, Sputum Changes, Stridor, Tachypnea, Wheezing, Other Cardiovascular: No Chest Pain, No Palpitations, No Orthopnea, No Paroxysmal Noc. Dyspnea, No Edema, No Lt Headedness, No Other Gastrointestinal: Yes Nausea, Yes Vomiting, Yes Abdominal Pain; No Diarrhea, No Constipation, No Melena, No Hematochezia, No Other Genitourinary: YES Dysuria, YES Frequency, YES Urgency, YES Pain, YES Flank Pain; No Incontinence, No Hematuria, No Retention, No Discharge, No Other, No , No , No , No , No , No , No Musculoskeletal: No Gait Disturbance, No Joint Pain, No Joint Stiffness, No Joint Swelling, No Muscle Pain, No Muscular Weakness, No Pain In:, No Swelling In:, No Other Neurological: No Behavorial Changes, No Bowel/Bladder ControlChng, No Confusion , No Dizziness, No Gait Disturbance, No Headaches, No Impaired Coord/balance, No Memory Loss, No Numbness/Tingling, No Seizures, No Speech Problems, No Tremors, No Visual Changes, No Weakness, No Other Skin: No Dry Skin, No Eczema, No Hair Changes, No Lumps, No Mole Changes, No Mottling, No Nail Changes, No Pruritus, No Rash, No Skin Lesion Changes, No Other, No Acne Physical Exam General: Alert, Oriented X3, Cooperative, No acute distress HEENT: Atraumatic, PERRLA, EOMI, Mucous membr. moist/pink Lungs: Clear to auscultation, Normal air movement Heart: S1S2, RRR, no gallops, no murmurs Abdomen: Normal bowel sounds, Soft, No hepatosplenomegaly, No masses, Other ( Right CVA tender) Rectal Exam: not examined Extremities: No clubbing, No cyanosis, No edema, Normal pulses, No tenderness/ swelling Skin: No rashes, No breakdown, No significant lesion Neuro: Normal gait, Normal speech, Strength at 5/5 X4 ext, Normal tone, Sensation intact, Cranial nerves 3-12 NL, Reflexes 2+ Psych/Mental Status: Mental status NL, Mood NL Vitals Vitals Vital Signs Date Time Temp Pulse Resp B/P (MAP) Pulse Ox O2 Delivery O2 Flow Rate FiO2 08/10/18 03:00 99.1 103 2 97/71 (80) 97 Room Air 99.1 Labs Labs Laboratory Tests Test 08/09/18 15:38 08/09/18 15:52 08/09/18 16:00 08/10/18 00:15 Urine Collection Type Void Urine Color Solomons Urine Clarity Clear Urine pH 8.5 Urine Specific [place] 1.015 Urine Protein Negative mg/dL (NEG-TRACE) Urine Glucose (UA) Negative mg/dL (NEG) Urine Ketones (Stick) Trace mg/dL (NEG) Urine Blood Negative (NEG) Urine Nitrite Positive (NEG) Urine Bilirubin Negative (NEG) Urine Urobilinogen Dipstick 1.0 mg/dL (0.2 mg/dL) Urine Leukocyte Esterase Moderate (NEG) Urine RBC 0 /HPF (0-2) Urine WBC 11-20 /HPF (0-4) Urine Squamous Epithelial Cells Few /LPF Urine Bacteria Few /HPF (0-FEW) Urine Mucus Mod /LPF Urine Opiates Screen Neg (NEG) Urine Methadone Screen Neg (NEG) Urine Barbiturates Neg (NEG) Urine Phencyclidine Screen Neg (NEG) Urine Amphetamine/Methamphetamine Neg (NEG) Urine Benzodiazepines Screen Neg (NEG) Urine Cocaine Screen Neg (NEG) Urine Cannabinoids Screen Neg (NEG) Urine Ethyl Alcohol Neg (NEG) Bedside Urine HCG, Qualitative Hcg positive (Negative) White Blood Count 13.5 x10^3/uL (4.0-11.0) Red Blood Count 5.14 x10^6/uL (3.50-5.40) Hemoglobin 14.8 g/dL (12.0-15.5) Hematocrit 43.5 % (36.0-47.0) Mean Corpuscular Volume 85 fL (79-100) Mean Corpuscular Hemoglobin 29 pg (25-35) Mean Corpuscular Hemoglobin Concent 34 g/dL (31-37) Red Cell Distribution Width 13.1 % (11.5-14.5) Platelet Count 258 x10^3/uL (140-400) Neutrophils (%) (Auto) 91 % (31-73) Lymphocytes (%) (Auto) 5 % (24-48) Monocytes (%) (Auto) 3 % (0-9) Eosinophils (%) (Auto) 1 % (0-3) Basophils (%) (Auto) 0 % (0-3) Neutrophils # (Auto) 12.3 x10^3uL (1.8-7.7) Lymphocytes # (Auto) 0.6 x10^3/uL (1.0-4.8) Monocytes # (Auto) 0.4 x10^3/uL (0.0-1.1) Eosinophils # (Auto) 0.1 x10^3/uL (0.0-0.7) Basophils # (Auto) 0.0 x10^3/uL (0.0-0.2) Segmented Neutrophils % 84 % (35-66) Band Neutrophils % 11 % (0-9) Lymphocytes % 3 % (24-48) Monocytes % 2 % (0-10) Platelet Estimate Adequate (ADEQUATE) Maternal Serum HCG Beta Subunit 10 mIU/mL (0-5) Sodium Level 144 mmol/L (136-145) Potassium Level 3.1 mmol/L (3.5-5.1) Chloride Level 105 mmol/L (98-107) Carbon Dioxide Level 27 mmol/L (21-32) Anion Gap 12 (6-14) Blood Urea Nitrogen 9 mg/dL (7-20) Creatinine 0.8 mg/dL (0.6-1.0) Estimated GFR (Cockcroft-Gault) 83.1 BUN/Creatinine Ratio 11 (6-20) Glucose Level 102 mg/dL (70-99) Calcium Level 9.2 mg/dL (8.5-10.1) Total Bilirubin 0.6 mg/dL (0.2-1.0) Aspartate Amino Transf (AST/SGOT) 15 U/L (15-37) Alanine Aminotransferase (ALT/SGPT) 19 U/L (14-59) Alkaline Phosphatase 65 U/L (46-116) Total Protein 7.9 g/dL (6.4-8.2) Albumin 4.4 g/dL (3.4-5.0) Albumin/Globulin Ratio 1.3 (1.0-1.7) Lipase 141 U/L (73-393) Ethyl Alcohol Level < 10 mg/dL (0-10) Lactic Acid Level 1.6 mmol/L (0.4-2.0) Test 08/10/18 04:15 White Blood Count 6.1 x10^3/uL (4.0-11.0) Red Blood Count 4.58 x10^6/uL (3.50-5.40) Hemoglobin 13.2 g/dL (12.0-15.5) Hematocrit 39.0 % (36.0-47.0) Mean Corpuscular Volume 85 fL (79-100) Mean Corpuscular Hemoglobin 29 pg (25-35) Mean Corpuscular Hemoglobin Concent 34 g/dL (31-37) Red Cell Distribution Width 12.7 % (11.5-14.5) Platelet Count 186 x10^3/uL (140-400) Neutrophils (%) (Auto) 86 % (31-73) Lymphocytes (%) (Auto) 11 % (24-48) Monocytes (%) (Auto) 3 % (0-9) Eosinophils (%) (Auto) 1 % (0-3) Basophils (%) (Auto) 0 % (0-3) Neutrophils # (Auto) 5.2 x10^3uL (1.8-7.7) Lymphocytes # (Auto) 0.6 x10^3/uL (1.0-4.8) Monocytes # (Auto) 0.2 x10^3/uL (0.0-1.1) Eosinophils # (Auto) 0.0 x10^3/uL (0.0-0.7) Basophils # (Auto) 0.0 x10^3/uL (0.0-0.2) Sodium Level 140 mmol/L (136-145) Potassium Level 3.3 mmol/L (3.5-5.1) Chloride Level 105 mmol/L (98-107) Carbon Dioxide Level 22 mmol/L (21-32) Anion Gap 13 (6-14) Blood Urea Nitrogen 9 mg/dL (7-20) Creatinine 0.7 mg/dL (0.6-1.0) Estimated GFR (Cockcroft-Gault) 97.0 Glucose Level 106 mg/dL (70-99) Calcium Level 7.9 mg/dL (8.5-10.1) Laboratory Tests Test 08/09/18 15:38 08/09/18 15:52 08/09/18 16:00 08/10/18 00:15 Urine Collection Type Void Urine Color Solomons Urine Clarity Clear Urine pH 8.5 Urine Specific [place] 1.015 Urine Protein Negative mg/dL (NEG-TRACE) Urine Glucose (UA) Negative mg/dL (NEG) Urine Ketones (Stick) Trace mg/dL (NEG) Urine Blood Negative (NEG) Urine Nitrite Positive (NEG) Urine Bilirubin Negative (NEG) Urine Urobilinogen Dipstick 1.0 mg/dL (0.2 mg/dL) Urine Leukocyte Esterase Moderate (NEG) Urine RBC 0 /HPF (0-2) Urine WBC 11-20 /HPF (0-4) Urine Squamous Epithelial Cells Few /LPF Urine Bacteria Few /HPF (0-FEW) Urine Mucus Mod /LPF Urine Opiates Screen Neg (NEG) Urine Methadone Screen Neg (NEG) Urine Barbiturates Neg (NEG) Urine Phencyclidine Screen Neg (NEG) Urine Amphetamine/Methamphetamine Neg (NEG) Urine Benzodiazepines Screen Neg (NEG) Urine Cocaine Screen Neg (NEG) Urine Cannabinoids Screen Neg (NEG) Urine Ethyl Alcohol Neg (NEG) Bedside Urine HCG, Qualitative Hcg positive (Negative) White Blood Count 13.5 x10^3/uL (4.0-11.0) Red Blood Count 5.14 x10^6/uL (3.50-5.40) Hemoglobin 14.8 g/dL (12.0-15.5) Hematocrit 43.5 % (36.0-47.0) Mean Corpuscular Volume 85 fL (79-100) Mean Corpuscular Hemoglobin 29 pg (25-35) Mean Corpuscular Hemoglobin Concent 34 g/dL (31-37) Red Cell Distribution Width 13.1 % (11.5-14.5) Platelet Count 258 x10^3/uL (140-400) Neutrophils (%) (Auto) 91 % (31-73) Lymphocytes (%) (Auto) 5 % (24-48) Monocytes (%) (Auto) 3 % (0-9) Eosinophils (%) (Auto) 1 % (0-3) Basophils (%) (Auto) 0 % (0-3) Neutrophils # (Auto) 12.3 x10^3uL (1.8-7.7) Lymphocytes # (Auto) 0.6 x10^3/uL (1.0-4.8) Monocytes # (Auto) 0.4 x10^3/uL (0.0-1.1) Eosinophils # (Auto) 0.1 x10^3/uL (0.0-0.7) Basophils # (Auto) 0.0 x10^3/uL (0.0-0.2) Segmented Neutrophils % 84 % (35-66) Band Neutrophils % 11 % (0-9) Lymphocytes % 3 % (24-48) Monocytes % 2 % (0-10) Platelet Estimate Adequate (ADEQUATE) Maternal Serum HCG Beta Subunit 10 mIU/mL (0-5) Sodium Level 144 mmol/L (136-145) Potassium Level 3.1 mmol/L (3.5-5.1) Chloride Level 105 mmol/L (98-107) Carbon Dioxide Level 27 mmol/L (21-32) Anion Gap 12 (6-14) Blood Urea Nitrogen 9 mg/dL (7-20) Creatinine 0.8 mg/dL (0.6-1.0) Estimated GFR (Cockcroft-Gault) 83.1 BUN/Creatinine Ratio 11 (6-20) Glucose Level 102 mg/dL (70-99) Calcium Level 9.2 mg/dL (8.5-10.1) Total Bilirubin 0.6 mg/dL (0.2-1.0) Aspartate Amino Transf (AST/SGOT) 15 U/L (15-37) Alanine Aminotransferase (ALT/SGPT) 19 U/L (14-59) Alkaline Phosphatase 65 U/L (46-116) Total Protein 7.9 g/dL (6.4-8.2) Albumin 4.4 g/dL (3.4-5.0) Albumin/Globulin Ratio 1.3 (1.0-1.7) Lipase 141 U/L (73-393) Ethyl Alcohol Level < 10 mg/dL (0-10) Lactic Acid Level 1.6 mmol/L (0.4-2.0) Test 08/10/18 04:15 White Blood Count 6.1 x10^3/uL (4.0-11.0) Red Blood Count 4.58 x10^6/uL (3.50-5.40) Hemoglobin 13.2 g/dL (12.0-15.5) Hematocrit 39.0 % (36.0-47.0) Mean Corpuscular Volume 85 fL (79-100) Mean Corpuscular Hemoglobin 29 pg (25-35) Mean Corpuscular Hemoglobin Concent 34 g/dL (31-37) Red Cell Distribution Width 12.7 % (11.5-14.5) Platelet Count 186 x10^3/uL (140-400) Neutrophils (%) (Auto) 86 % (31-73) Lymphocytes (%) (Auto) 11 % (24-48) Monocytes (%) (Auto) 3 % (0-9) Eosinophils (%) (Auto) 1 % (0-3) Basophils (%) (Auto) 0 % (0-3) Neutrophils # (Auto) 5.2 x10^3uL (1.8-7.7) Lymphocytes # (Auto) 0.6 x10^3/uL (1.0-4.8) Monocytes # (Auto) 0.2 x10^3/uL (0.0-1.1) Eosinophils # (Auto) 0.0 x10^3/uL (0.0-0.7) Basophils # (Auto) 0.0 x10^3/uL (0.0-0.2) Sodium Level 140 mmol/L (136-145) Potassium Level 3.3 mmol/L (3.5-5.1) Chloride Level 105 mmol/L (98-107) Carbon Dioxide Level 22 mmol/L (21-32) Anion Gap 13 (6-14) Blood Urea Nitrogen 9 mg/dL (7-20) Creatinine 0.7 mg/dL (0.6-1.0) Estimated GFR (Cockcroft-Gault) 97.0 Glucose Level 106 mg/dL (70-99) Calcium Level 7.9 mg/dL (8.5-10.1) Images Images TVUS - 1. No pole or gestational sac identified. It is possible that this is due to early gestational age, although patient's beta-hCG elevation may be due to aforementioned hCG injections. Recommend serial beta-hCG levels and follow-up sonography as indicated. 2. Multiple small bilateral ovarian cysts. Normal bilateral ovarian vascular flow. VTE Prophylaxis Ordered VTE Prophylaxis Devices: Yes VTE Pharmacological Prophylaxi: No Assessment/Plan Assessment/Plan A/P: Right flank pain - symptomatically pyelonephritis with positive UA. Cont rocephin Sepsis - likely 2/2 pyelonephritis, IVF, antibiotics, tylenol prn Positive bHCG - will consult Job Press Operator, serial HCG to r/o . She takes exogenous HCG Hypokalemia - will replace orally, check mag level FEN - Clear liquid diet PPX - SCDs FULL CODE Inpatient for pyelonephritis with sepsis for at least 2 midnights JEANNE OLGUIN MD Aug 10, 2018 07:38
[2018-08-10] MEDS: ACETAMINOPHEN 325 MG TABLET. PO PRN (08:14)
[2018-08-10] MEDS ORDERED: ONDANSETRON ODT 4 MG TAB.RAPDIS. PO PRN (08:45)
[2018-08-10] MEDS ORDERED: POTASSIUM CHLORIDE 20 MEQ TABLET.ER. PO ONE (09:00)
[2018-08-10] MEDS: cefTRIAXone IV Push 1 GM VIAL. IVP SCH (09:55)
[2018-08-10] MEDS ORDERED: IV RINGERS,LACTATED 1000ML 1,000 ML IV ONE (10:00)
--- NOTE | 2018-08-10 17:10 | EKG ---
[facility] [address] [place] [address] Test Date: 2018-08-10 Test Time: 00:02:10 Pat Name: PEEWEE EDUARDO Department: Room: [facility] Gender: F Tooling Engineer: GRANT : 1985 Requested By: DARRIN TIWARI Order Number: [id number] Reading MD: Travis Aleman MD Measurements Intervals [place] Rate: 115 P: 39 [place]: 122 QRS: 53 QRSD: 78 T: 63 QT: 312 QTc: 433 Interpretive Statements SINUS TACHYCARDIA Electronically Signed On 08-11-2018 9:57:34 CDT by Travis Aleman MD
[2018-08-11 03:00] VITALS: BP 115/65
[2018-08-11 07:00] VITALS: BP 98/48
[2018-08-11] MEDS: MAGNESIUM CHLORIDE ER 64 MG TABLET.ER PO SCH ×2 (09:00→09:44)
[2018-08-11] MEDS: cefTRIAXone IV Push 1 GM VIAL. IVP SCH (09:43)
[2018-08-11] MEDS ORDERED: CIPR500T94 PO (10:25)
--- NOTE | 2018-08-11 10:27 | PDOC3 ---
Discharge Summary Visit Information Date of Admission: Aug 10, 2018 Date of Discharge: Aug 11, 2018 Admitting Diagnosis Comment: UTI symptomatic Final Diagnosis Problems Medical Problems: (1) Elevated serum hCG Status: Acute (2) Hypokalemia Status: Acute (3) Pyelonephritis Status: Acute Brief Hospital Course Allergies Allergies Coded Allergies Type Severity Reaction Last Updated Verified Sulfa (Sulfonamide Antibiotics) Allergy Intermediate 05/09/18 Yes Vital Signs Vital Signs Date Time Temp Pulse Resp B/P (MAP) Pulse Ox O2 Delivery O2 Flow Rate FiO2 08/11/18 07:00 98.5 67 20 98/48 (65) 98 Room Air 98.5 Lab Results Laboratory Tests Test 08/09/18 15:38 08/09/18 15:52 08/09/18 16:00 08/10/18 00:15 Urine Collection Type Void Urine Color [place] Urine Clarity Clear Urine pH 8.5 Urine Specific [place] 1.015 Urine Protein Negative mg/dL (NEG-TRACE) Urine Glucose (UA) Negative mg/dL (NEG) Urine Ketones (Stick) Trace mg/dL (NEG) Urine Blood Negative (NEG) Urine Nitrite Positive (NEG) Urine Bilirubin Negative (NEG) Urine Urobilinogen Dipstick 1.0 mg/dL (0.2 mg/dL) Urine Leukocyte Esterase Moderate (NEG) Urine RBC 0 /HPF (0-2) Urine WBC 11-20 /HPF (0-4) Urine Squamous Epithelial Cells Few /LPF Urine Bacteria Few /HPF (0-FEW) Urine Mucus Mod /LPF Urine Opiates Screen Neg (NEG) Urine Methadone Screen Neg (NEG) Urine Barbiturates Neg (NEG) Urine Phencyclidine Screen Neg (NEG) Urine Amphetamine/Methamphetamine Neg (NEG) Urine Benzodiazepines Screen Neg (NEG) Urine Cocaine Screen Neg (NEG) Urine Cannabinoids Screen Neg (NEG) Urine Ethyl Alcohol Neg (NEG) Bedside Urine HCG, Qualitative Hcg positive (Negative) White Blood Count 13.5 x10^3/uL (4.0-11.0) Red Blood Count 5.14 x10^6/uL (3.50-5.40) Hemoglobin 14.8 g/dL (12.0-15.5) Hematocrit 43.5 % (36.0-47.0) Mean Corpuscular Volume 85 fL (79-100) Mean Corpuscular Hemoglobin 29 pg (25-35) Mean Corpuscular Hemoglobin Concent 34 g/dL (31-37) Red Cell Distribution Width 13.1 % (11.5-14.5) Platelet Count 258 x10^3/uL (140-400) Neutrophils (%) (Auto) 91 % (31-73) Lymphocytes (%) (Auto) 5 % (24-48) Monocytes (%) (Auto) 3 % (0-9) Eosinophils (%) (Auto) 1 % (0-3) Basophils (%) (Auto) 0 % (0-3) Neutrophils # (Auto) 12.3 x10^3uL (1.8-7.7) Lymphocytes # (Auto) 0.6 x10^3/uL (1.0-4.8) Monocytes # (Auto) 0.4 x10^3/uL (0.0-1.1) Eosinophils # (Auto) 0.1 x10^3/uL (0.0-0.7) Basophils # (Auto) 0.0 x10^3/uL (0.0-0.2) Segmented Neutrophils % 84 % (35-66) Band Neutrophils % 11 % (0-9) Lymphocytes % 3 % (24-48) Monocytes % 2 % (0-10) Platelet Estimate Adequate (ADEQUATE) Maternal Serum HCG Beta Subunit 10 mIU/mL (0-5) Sodium Level 144 mmol/L (136-145) Potassium Level 3.1 mmol/L (3.5-5.1) Chloride Level 105 mmol/L (98-107) Carbon Dioxide Level 27 mmol/L (21-32) Anion Gap 12 (6-14) Blood Urea Nitrogen 9 mg/dL (7-20) Creatinine 0.8 mg/dL (0.6-1.0) Estimated GFR (Cockcroft-Gault) 83.1 BUN/Creatinine Ratio 11 (6-20) Glucose Level 102 mg/dL (70-99) Calcium Level 9.2 mg/dL (8.5-10.1) Total Bilirubin 0.6 mg/dL (0.2-1.0) Aspartate Amino Transf (AST/SGOT) 15 U/L (15-37) Alanine Aminotransferase (ALT/SGPT) 19 U/L (14-59) Alkaline Phosphatase 65 U/L (46-116) Total Protein 7.9 g/dL (6.4-8.2) Albumin 4.4 g/dL (3.4-5.0) Albumin/Globulin Ratio 1.3 (1.0-1.7) Lipase 141 U/L (73-393) Ethyl Alcohol Level < 10 mg/dL (0-10) Lactic Acid Level 1.6 mmol/L (0.4-2.0) Test 08/10/18 04:00 08/10/18 04:15 Magnesium Level 1.6 mg/dL (1.8-2.4) White Blood Count 6.1 x10^3/uL (4.0-11.0) Red Blood Count 4.58 x10^6/uL (3.50-5.40) Hemoglobin 13.2 g/dL (12.0-15.5) Hematocrit 39.0 % (36.0-47.0) Mean Corpuscular Volume 85 fL (79-100) Mean Corpuscular Hemoglobin 29 pg (25-35) Mean Corpuscular Hemoglobin Concent 34 g/dL (31-37) Red Cell Distribution Width 12.7 % (11.5-14.5) Platelet Count 186 x10^3/uL (140-400) Neutrophils (%) (Auto) 86 % (31-73) Lymphocytes (%) (Auto) 11 % (24-48) Monocytes (%) (Auto) 3 % (0-9) Eosinophils (%) (Auto) 1 % (0-3) Basophils (%) (Auto) 0 % (0-3) Neutrophils # (Auto) 5.2 x10^3uL (1.8-7.7) Lymphocytes # (Auto) 0.6 x10^3/uL (1.0-4.8) Monocytes # (Auto) 0.2 x10^3/uL (0.0-1.1) Eosinophils # (Auto) 0.0 x10^3/uL (0.0-0.7) Basophils # (Auto) 0.0 x10^3/uL (0.0-0.2) Sodium Level 140 mmol/L (136-145) Potassium Level 3.3 mmol/L (3.5-5.1) Chloride Level 105 mmol/L (98-107) Carbon Dioxide Level 22 mmol/L (21-32) Anion Gap 13 (6-14) Blood Urea Nitrogen 9 mg/dL (7-20) Creatinine 0.7 mg/dL (0.6-1.0) Estimated GFR (Cockcroft-Gault) 97.0 Glucose Level 106 mg/dL (70-99) Calcium Level 7.9 mg/dL (8.5-10.1) Brief Hospital Course Ms. Hernández is a 33 old otherwise healthy white female, comes in because of flank pains and dysuria. Symptomatic UTI. Could not wait for urine cultures and that is okay as she is nontoxic appearing. 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 No fever no leukocytosis. She did test positive for some beta hCG but ultrasound is negative for heart tones or gestational sac. She does take some progesterone shots for control PROSTHETIC AIDE consulted but did not need to see Will discharge to by mouth Cipro She did try Macrobid from urgent care. With minimal resolve. I will call her if urine culture comes out and is resistant to Cipro Consults performed PROSTHETIC AIDE Procedures performed ; sono, neg Gestational sac - BEta HCG elevation likely from OCP Discharge Information Condition at Discharge: Improved, Stable Disposition/Orders: D/C to Home Scheduled Ciprofloxacin Hcl (Cipro) 500 Mg Tablet, 1 TAB PO BID for uti, #20 Prescribed by: JAC ELIAS on 08/11/18 1025 Dextroamphetamine/Amphetamine (Adderall 10 Mg Tablet) 10 Mg Tablet, 5 MG PO BID for unknown, (Reported) Entered as Reported by: DEE SHIN RN on 08/09/182120 Last Action: HELD on 08/10/18843 by JEANNE OLGUIN MD Scheduled PRN Ondansetron (Ondansetron Odt) 4 Mg Tab.rapdis, 1 TAB PO PRN Q6-8HRS PRN for NAUSEA/VOMITING, #16 Ref 0 Prescribed by: LYNN RAMSEY APRN on 05/09/18 1856 Last Action: Continued on 08/10/18843 by MD JADA VASQUEZ CHERRIE Y MD Aug 11, 2018 10:27
[2018-08-11 10:42] VITALS: BP 101/62
== END 2018-08-11 11:24 | disposition home or self-care (01) | DRG 872 ==
LOC: ER 15:14 → 6 SOUTH 18:58 → 5 NORTH 19:58
PROVIDERS: ADMIT Internal Medicine; ATTEND Internal Medicine
DX: A41.9 Sepsis, unspecified organism (principal); N10 Acute pyelonephritis; E87.6 Hypokalemia; Z82.49 Family history of ischemic heart disease and other diseases of the circulatory system; Z88.2 Allergy status to sulfonamides; Z79.899 Other long term (current) drug therapy
CPT/HCPCS: 36415; 76801; 76817; 80048; 80053; 80307; 81001; 81025; 83605; 83690; 83735; 84702; 85007; 85025; 87040; 87086; 93005; 96365; 96375; G0480; J0696; J0780; J2270; J2405; J3010; J7030; J7120; 84704; 99285-25